=== PATIENT | male | born 1960 | race Caucasian/White ===

== ENCOUNTER 2017-03-19 12:46 | Observation (INO) | payer BC ==
--- NOTE | 2017-03-19 13:25 | ED ---
Shortness of Breath - HPI Summary HPI Summary: Patient presents to the ED with CC of SOB x 30 minutes which was resolved spontaneously prior to arrival to the ED. He states he was sitting at the time , and immediately after receiving not great news he began to experience the SOB and feeling he could not take a deep breath. Diaphoretic at the time, but is now appearing well. Mild chest pain 1/10 during SOB episode, but none currently. He states he feels OK now. He did not take aspirin at the time. He denies neurological deficits, confusion or GUARDADO. Nn personal history of cardiac problems, SOB, obstructive apnea or other contributory health complaints. Denies recent illness, sick contacts. Denies cough. He takes vitamins daily, but denies prescription medications. He is obese, but states he has been otherwise healthy. He has never had anything like this before. Denies travel, leg pain. Recent surgery to his upper back, but this was an outpatient procedure. He was not given abx or blood thinners. Family history includes paternal grandfather of [place] in 50's. Father [place] in late 60's. Non- smoker, marijuana use rare, ETOH rare. is at bedside. EKG shows changes. - History of Current Complaint Chief Complaint: EDShortnessOfBreath Time Seen by Provider: 03/19/17 13:07 Hx Obtained From: Patient Onset/Duration: Sudden Onset Timing: Intermittent Episodes Lasting: - 30minutes/ since resolved Current Severity: None Dyspnea At: Rest Related History: Obesity - Risk Factors Pulmonary Embolism: Recent Surgery Cardiac: Negative Pseudomonas: Negative Tuberculosis: Negative - Allergy/Home Medications Allergies/Adverse Reactions: Allergies Allergy/AdvReac Type Severity Reaction Status Date / Time Penicillins Allergy Hives Verified 03/19/17 14:49 Home Medications: Home Medications NK [No Home Medications Reported] 03/19/17 [History Confirmed 03/19/17] PMH/Surg Hx/FS Hx/Imm Hx Previously Healthy: Yes - Immunization History Hx Pertussis Vaccination: No Immunizations Up to Date: Unable to Obtain/Confirm Infectious Disease History: No Infectious Disease History: Denies: Traveled Outside the [place] in Last 30 Days - Social History Occupation: Employed Full-time Lives: With Family Alcohol Use: None Hx Substance Use: Yes Substance Use Type: Reports: Marijuana Hx Tobacco Use: No Smoking Status (MU): Never Smoked Tobacco Review of Systems Constitutional: Negative Eyes: Negative Cardiovascular: Negative Positive: Shortness Of Breath Genitourinary: Negative Positive: see HPI Positive: Other - small s/p surgery scar to upper midline back All Other Systems Reviewed And Are Negative: Yes Physical Exam - Summary Physical Exam Summary: Obese man in NAD sitting upright comfortably on the stretcher. Triage Information Reviewed: Yes Vital Signs On Initial Exam: Initial Vitals Temp Pulse Resp BP Pulse Ox 96.9 F 79 20 197/43 94 03/19/17 12:49 03/19/17 12:49 03/19/17 12:49 03/19/17 12:49 03/19/17 12:49 Vital Signs Reviewed: Yes Appearance: Positive: Well-Appearing, Well-Nourished Skin: Positive: Warm, Skin Color Reflects Adequate Perfusion Head/Face: Positive: Normal Head/Face Inspection Eyes: Positive: EOMI, EMMANUEL, Conjunctiva Clear Neck: Positive: Supple, No Lymphadenopathy Respiratory/Lung Sounds: Positive: Clear to Auscultation, Breath Sounds Present Cardiovascular: Positive: Normal, RRR Musculoskeletal: Positive: Normal, Strength/ROM Intact Neurological: Positive: Sensory/Motor Intact, Alert, Oriented to Person Place, Time, Speech Normal Psychiatric: Positive: Normal - Jhonny Coma Scale Coma Scale Total: 15 Diagnostics - Vital Signs Vital Signs Temp Pulse Resp BP Pulse Ox 03/19/17 13:10 97.8 F 81 18 178/41 95 03/19/17 12:49 96.9 F 79 20 197/43 94 - Laboratory Result Diagrams: 03/19/17 13:30 03/19/17 13:30 Lab Statement: Any lab studies that have been ordered have been reviewed, and results considered in the medical decision making process. Course/Dx - Course Course Of Treatment: Patient given aspirin 324mg and Metoprolol 25mg. EKG shows changes with T wave inversions in V4-V-6. Called Dr. Odom to make aware at 4:10pm who advised heparin over Lovenox. Hospitalist called and will admit to their service. Chest x-ray to body habitus, but show nothing acutely. Admitted at 4:15pm. Dr. Jane to see patient as well. - Diagnoses Differential Diagnosis/HQI/PQRI: Positive: Chest Wall Pain, [place], Unstable Angina Provider Diagnoses: SOB (shortness of breath) Discharge - Discharge Plan Condition: Stable Disposition: ADMITTED TO [facility]
--- NOTE | 2017-03-19 13:55 | RAD ---
Indication: Shortness of breath. Cough. EKG changes. Anxiety. Comparison: February 06, [address] Technique: Upright AP 1320 hours Report: Superimposed soft tissues with large body habitus limits image quality. No compelling pulmonary consolidation, focal pulmonary lesion, pleural effusion, pneumothorax. Mild cardiomegaly. Unremarkable central pulmonary vasculature. Mildly tortuous descending thoracic aorta potentiated by mild scoliosis similar to the race board attendant image from the February 06, 2011 CT abdomen exam. IMPRESSION: Limited exam due to large body habitus without compelling evidence for acute pulmonary or cardiac process.
[2017-03-19 13:59] LABS: Hematocrit 51 % (42-52); Hemoglobin 17.1 g/dl (14.0-18.0); Mean Corpuscular HGB Conc 34 g/dl (31-36); Mean Corpuscular Hemoglobin 31 pg (27-31); Mean Corpuscular Volume 92 fL (80-94); Mean Platelet Volume 9 um3 (7.4-10.4); Red Blood Count 5.52 10^6/ul (4.0-5.4); Red Cell Distribution Width 14 % (10.5-15); White Blood Count 7.3 10^3/ul (3.5-10.8)
[2017-03-19 14:00] LABS: Urine Bilirubin Negative (Negative); Urine Glucose Negative (Negative); Urine Nitrite Negative (Negative)
[2017-03-19 14:11] LABS: Albumin 4.3 g/dL (3.2-5.2); BUN/Creatinine Ratio 23.5 (8-20); Calcium 10.6 mg/dL (8.6-10.3); EGFR African American 119.1 (>60); EGFR Non-African American 92.6 (>60); Globulin 3.1 g/dL (2-4); Total Bilirubin 0.5 mg/dL (0.2-1.0); Total Protein 7.4 g/dL (6.4-8.9)
[2017-03-19 14:15] LABS: Potassium 4.5 mmol/L (3.5-5.0)
[2017-03-19 14:16] LABS: Troponin I 0.14 ng/mL (<0.04)
[2017-03-19] MEDS ORDERED: Metoprolol Tartrate TAB* 25 MG PO ONE (14:35)
[2017-03-19] MEDS ORDERED: Ondansetron INJ* 2 MG/ML VIAL IV PRN (14:44)
[2017-03-19] MEDS ORDERED: Aspirin Low Dose CHEW TAB* 81 MG PO ONE (14:44)
[2017-03-19] MEDS ORDERED: Docusate CAP* 100 MG PO PRN (14:44)
[2017-03-19] MEDS ORDERED: Iohexol 350* (CONTRAST) 500 ML MDV IV ONE (14:48)
[2017-03-19 15:44] LABS: Magnesium 2.2 mg/dL (1.9-2.7)
[2017-03-19] MEDS ORDERED: Atorvastatin* 80 MG TAB PO ONE (16:51)
[2017-03-19] MEDS ORDERED: Heparin DRIP 25,000 UNITS(*) 25,000 UNITS/500 ML BAG IVPB SCH (17:00)
[2017-03-19] MEDS ORDERED: Heparin VIAL(*) 5000 UNITS/ML VIAL (FIVE THOUSAND) IV SCH (17:00)
--- NOTE | 2017-03-19 18:03 | RAD ---
INDICATION: Shortness of breath. Anxiety. Assess for aortic dissection. COMPARISON: March 19, 2017 chest radiograph. TECHNIQUE: Multidetector CT images were obtained from the lung apices to the upper abdomen with 100 mL Omnipaque 350 IV contrast. Thoracic aorta angiogram protocol. Multiplanar reformation including with maximum intensity projection. REPORT: Mild geographic somewhat linear/planar pulmonary opacities are most suspicious for subsegmental atelectasis. Negative for pleural effusion or pneumothorax. Cardiomegaly with evidence for LEFT ventricular hypertrophy. Aneurysm of the thoracic aorta measuring up to 5.3 cm diameter at the sinotubular junction, 6.5 cm diameter at the ascending segment at the level of the main pulmonary artery, 3.4 cm at the proximal arch, 4.6 cm at the distal arch, and 3.5 cm at the distal descending segment. No dissection flap evident. Negative for mediastinal hematoma. Negative for significant atherosclerotic plaque of the thoracic aorta. Unremarkable aortic arch branch vessel origins. Negative for pericardial effusion. Unremarkable main pulmonary arteries. Opacification of the pulmonary arteries is insufficient for assessment for pulmonary embolism. Negative for thoracic lymphadenopathy. Limited images through the upper abdomen extending up to 3.5 cm below the origin of the renal arteries are without evidence for aneurysm of the visualized abdominal aorta or other suspicious abnormality. No suspicious focal osseous lesions evident. IMPRESSION: 1. Aneurysm of the thoracic aorta measuring up to 6.5 cm diameter at the descending segment at the level of the main pulmonary artery and extending from the sinotubular junction through the distal arch. No CT angiogram evidence for aortic dissection or aneurysm leak. 2. Cardiomegaly with suggestion of LEFT ventricular hypertrophy. 3. Mild bilateral subsegmental atelectasis. Results discussed with Dr. Aguilar 03/19/2017 5:58 PM EDT
--- NOTE | 2017-03-19 22:06 | DS ---
CC: Dr. Diaz * ADMISSION/TRANSFER/DISCHARGE NOTE: DATE OF ADMISSION: 03/19/17 DATE OF DISCHARGE: 03/19/17 PRIMARY CARE PROVIDER: Dr. Diaz. HEALTHCARE PROXY: His . CODE STATUS: Full. SOURCE OF INFORMATION: History obtained from interview with the patient and his . RELIABILITY: Fair. CHIEF COMPLAINT: Shortness of breath. HISTORY OF PRESENT ILLNESS: This is a 56-year-old man with no known past medical history, but in his usual state of health at home. His had gone out to visit his mother and when she returned he was startled. He developed difficulty taking deep breath that felt as if he was taking shallow breath. He did not feel like he was hyperventilating because he did not feel dizzy. During this period of time, he developed cough with generation of mucus. The shortness of breath lasted for approximately 30 to 45 minutes and his chest felt "weird." He denied any palpitations. Took his pulse to be 80 at home. He noted that the shortness of breath improved with relaxation. No associated nausea or vomiting. He has no recent sick contacts. No travel. His weight has been stable for the last 2 to 3 years. Most activity he gets is competitive [employer] tournaments where he throws approximately 300 horseshoes, and walks back and forth between the posts for approximately 3 to 4 hours. His last competition was in November. He notes that recently he went to 4 funerals in the last 2 months with 2 friends dying from MIs in the last 10 days, which have caused some notable anxiety. REVIEW OF SYSTEMS: As per HPI. Otherwise, all other systems negative. PAST MEDICAL HISTORY: Osteoarthritis of the left knee, status post several left knee surgeries. SOCIAL HISTORY: Occasional marijuana, 3 to 4 cigars per year, 3 drinks per day. 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 FAMILY HISTORY: Paternal grandfather with [place] in his 50s. Father from an [place] during surgery in his 60s, also had cancer of the bladder. ALLERGIES: PENICILLIN, was told he had hives as a kid. MEDICATION: Naproxen 200 mg daily. PHYSICAL EXAMINATION: Vitals: 176/35, heart rate 70, respiratory rate 16, and 95% on room air, T-max in the hospital 98 degrees Fahrenheit. Sitting up in bed , interactive, pleasant, in no apparent distress, obese. His oropharynx is clear. He has moist mucous membranes. Sclerae anicteric. He has not had elevated JVD. No cervical or supraclavicular lymphadenopathy. He has 2/6 systolic blowing ejection murmur at right upper sternal border as well as he had a 3/6 blowing diastolic murmur in the right upper sternal border. His lungs are clear to auscultation. His abdomen is obese, soft, nontender, nondistended. Positive bowel sounds. Extremities: Warm, well perfused, without clubbing, cyanosis or edema. He is alert and oriented x3. His cranial nerves II through XII are intact. LABORATORY DATA: Reviewed. Troponin I is 0.14, increasing to 0.16 two and a half hours later. BNP 316. Hemoglobin A1c 5.3. BUN 20, creatinine 0.85. D- dimer less than 200. Hemoglobin 17.1, hematocrit 51, platelets 158, white blood cell count 7.3. DATA REVIEWED: CTA chest and thorax performed to rule out aortic dissection. Cardiomegaly with evidence of left ventricular hypertrophy. Aneurysm of thoracic aorta measuring 5.3 cm diameter at the sinotubular junction, 6.5 cm diameter at the ascending segment at the level of the main pulmonary artery, 3.4 cm at the proximal arch, 4.6 cm at the distal arch, 3.5 cm at the distal ascending segment. No dissection flap evident. Negative for mediastinal hematoma. EKG on admission: Normal sinus rhythm; ventricular rate 72; normal limit axis and intervals; ST depressions V4 through V6, lead I, new from 2010; Q waves II, III, and aVF, old since 2010. ASSESSMENT AND PLAN: This is a 56-year-old man with no known past medical history, presenting to the hospital with 30 to 40 minutes of shortness of breath , resolved with relaxation, found with aortic insufficiency, with a wide pulse pressure of unknown chronicity in the setting of large ascending aortic aneurysm. There is concern of the patient's elevated troponin in the setting of acute coronary syndrome, although also possibility of the man in the setting of new aortic insufficiency or low output in the setting of aortic insufficiency. Dr. Odom consulted in this patient and came to the hospital and performed transthoracic echocardiogram at bedside, indicating severe aortic insufficiency , although that exam was limited by enlarged aortic aneurysm. Discussed the case and if the patient does have advancing type 1 [id number] myocardial infarction, we will be unable to accommodate for him left heart cath here due to aortic aneurysm. Additionally, the patient does follow with Dr. Diaz and has never been told that he has any murmur. In the setting of symptomatology and elevated troponin, it is felt that this is likely acute aortic insufficiency. While dissection is high on the differential for etiology of new acute aortic insufficiency, none was indicated on his CTA. However, this does not rule out a developing dissection. Even in the absence of a dissection , he would still need CT surgery for the magnitude of his aortic aneurysm. For these reasons, we discussed care with the patient and his and arranged transfer to [facility] with the accepting physician, Dr. Dunham. The case was discussed by Dr. Odom with Dr. Dunham at [facility]. The patient and his are in agreement. TIME SPENT: Greater than 75 minutes was spent in admission and transfer of this patient, greater than half was [id number] with the patient. [id number]/[facility] #: [id number] [facility] MED[facility] CENTERDaphne
[2017-03-19 23:20] VITALS: BP 189/41
--- NOTE | 2017-03-20 05:26 | CONS ---
CC: Dr. Diaz; Dr. Dunham at [facility]; Dr. Odom. * CARDIOLOGY CONSULTATION: DATE OF CONSULT: 03/19/17 REASON FOR EVALUATION: Dyspnea, abnormal troponin. HISTORY OF PRESENT ILLNESS: This is a pleasant 56-year-old gentleman who has a history of left knee problems, limiting his ability to ambulate as well as obesity. He denies any hypertension, murmurs, or previous cardiac history. He was in his usual state of health today until he noticed a sudden onset of shortness of breath and diaphoresis. He said he felt like he could not take a deep breath. He said it persisted for about 20 minutes despite trying to meditate and get control of his breathing and because of those symptoms, his decided to take him to the emergency room. By the time he got to the emergency room, he was feeling better, but he was noted to have an elevated troponin of 0.14 and an abnormal EKG with lateral ST-T wave changes. He was admitted and subsequently found to have an AI murmur. He adamantly denied that he has had murmur in the past and he last saw Dr. Diaz about a year ago. Because of those findings, a CT scan was ordered, which revealed aneurysm of the thoracic aorta measuring up to 6.5 cm at the descending segment at the level of the main pulmonary artery and extending from the sinotubular junction through the distal arch. No evidence for dissection or aneurysm leak. There was cardiomegaly with suggestion of LVH, mild bilateral subsegmental atelectasis. There was no pericardial effusion. Because of those show up that I performed a bedside echo, which was suboptimal, but did reveal what appeared to be severe AI as well as mild MR, overall preserved LV function with relative hypokinesis of the inferior posterior wall. The patient currently is pain free. He denies any syncope. No palpitations, orthopnea. He does have some chronic edema of his lower extremities and chronic venous stasis changes. He denies fevers, chills, sweats, or sharp chest pain. His symptoms occurred about 11:30 this morning. He denies tobacco use, diabetes, hyperlipidemia, hypertension. He does admit to obesity. PAST SURGICAL HISTORY: He said he had a surgery on his left knee in 1975 and arthroscopic surgery x2 and stated that he has severe impairment of the knee and is anticipating possible knee surgery, though he is trying to lose weight first. He denies other surgeries. FAMILY HISTORY: He has a sister that is adopted. Mother is alive and well at 88. Father after attempted valve surgery and had a history of coronary disease and bladder cancer. Paternal grandfather in his 50s. ALLERGIES: Include PENICILLIN. MEDICATIONS: As an outpatient, he was just on Naprosyn 200 mg daily for his knee pain. SOCIAL HISTORY: He drinks 2 to 3 alcoholic beverages a day. He denies tobacco use. He drinks 2 cups of caffeine a day. 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 He is , has no children. He is accompanied by his . REVIEW OF SYSTEMS: He states he sweats easily with exertion and states he sweats easily when playing horseshoes, which he does occasionally, but does not exercise otherwise. PHYSICAL EXAMINATION: He is a well-developed, obese gentleman, appearing somewhat anxious, but no apparent distress. The patient is 6 feet 2 inches and weighs 290 pounds. Blood pressure 176/35, pulse of 70, O2 sat 96%, temperature 98. Atraumatic, normocephalic. Extraocular muscles intact. Sclerae anicteric. No significant JVD. Carotids somewhat bounding. No cervical adenopathy or thyromegaly. Cardiac Exam: S1 and S2 with a 3/6 systolic ejection murmur at the left sternal border as well as a 2/4 diastolic murmur heard at the left lower sternal border at the apex. Chest was clear. No CVAT. Abdomen obese. Exam limited by obesity. Bowel sounds present, nontender. No hepatospleno- megaly. Femoral pulses intact without bruits. Distal pulses on the left were diminished. Posterior tibialis was palpable. I could not feel dorsalis pedis. On the right, there was 1+. Both feet were cool and he said that is usual for him. DIAGNOSTIC STUDIES/LAB DATA: His labs include fairly unremarkable CBC with hematocrit 51. Sodium 137, potassium 4.5, BUN of 20, creatinine of 0.85. Myoglobin is 56, CK-MB of 7.6. Elevated troponin of 0.14 and repeated at 15:54 was 0.16. BNP elevated at 316. Potassium 4.5, BUN 20, creatinine of 0.85. Chest x-ray revealed mild cardiomegaly, mildly tortuous descending thoracic aorta, potentiated by mild scoliosis. Limited exam due to large body habitus. EKG revealed sinus rhythm with LVH and lateral ST-T changes. Consider ischemia versus LVH repolarization abnormalities, these are new compared to 2011. He also has left atrial enlargement. IMPRESSION: My impression is that Mr. Hoffman presents with symptoms of onset of dyspnea/diaphoresis of unclear etiology and a newly recognized aortic insufficiency murmur with electrocardiographic changes and mild elevation of troponin to 0.14. Although he is currently asymptomatic with a wide pulse pressure, I am concerned that this aortic insufficiency may be acute given his history of no previous murmur and the wide pulse pressure, now he states that previously his blood pressure was 120/80. Also, the elevation of troponin and the inferior posterior wall motion abnormalities and possibility of acute coronary syndrome are compromise of the coronary perfusion either due to dissection or the wide pulse pressure. I discussed these findings with him, his , and with Dr. Aguilar. Given the potential need for cardiac catheterization with a dilated aortic aneurysm as well as the potential need for cardiothoracic surgery, I did recommend transfer to tertiary care center for further evaluation and treatment. The patient understands and agrees and requests a transfer to [facility]. I did have a conversation with Dr. Yan Dunham, who did accept the patient in transfer. For the time being, we will avoid anticoagulation at this point in time until he has further evaluation of his aorta. I am reluctant to decrease his pulse pressure or blood pressure further at this point in time, given the potential ischemia with his wide pulse pressure. He will continue to be monitored. I did recommend long-term weight reduction. Given the large ascending aneurysm, most likely he will be a candidate for surgical repair and possibly aortic valve replacement or repair. Further recommendations depend on his clinical course. [id number]/[facility] #: [id number] MARIANO
--- NOTE | 2017-03-20 05:34 | CARD ---
CC: Dr. Diaz; Dr. Dunham * DATE OF PROCEDURE: 03/19/17 - ROOM #431 PROCEDURE: Bedside echo. PATIENT OF: Dr. Diaz and Dr. Dunham at [facility]. INDICATION: A 56-year-old gentleman presented with shortness of breath, elevated troponin, abnormal EKG, newly recognized murmur with AI. A bedside echo was requested. The patient is morbidly obese and has a dilated ascending aortic aneurysm. Imaging was suboptimal. In brief, it revealed a well preserved LV function with EF of 55% to 60%, there was mild relative hypokinesis at the inferior posterior wall. The aortic valve was suboptimally visualized, but there appeared at least moderate and perhaps severe AI. The mitral valve was visualized and there appeared to be mild MR. The ascending aorta was dilated. RV systolic function appeared to be normal. There was no pericardial effusion. IMPRESSION: Suboptimal study, which revealed overall preserved left ventricular function with possible inferior posterior wall motion abnormality. There also appeared to be moderate to severe if not severe aortic insufficiency. There is mild mitral regurgitation and a dilated ascending aorta but not well seen, cannot exclude dissection on the basis of the study. [id number]/[facility] #: [id number] [facility]
[2017-03-20] MEDS ORDERED: Aspirin EC Low Dose* 81 MG TAB.EC PO SCH (09:00)
--- NOTE | 2017-03-21 07:54 | PN ---
Carolina Rodgers SooYoung, scribed for Guero Jane MD on 03/19/17 at 1451 . Progress Note - Progress Note Date of Service: 03/19/17 Note: 1444: evaluated MELITON Pasquale's patient. Pt is a 56 y/o M presenting to ED with c/o SOB, shallow-breathing, productive cough onset approx 1100. He states "just not feeling right" earlier. He states feeling fairly normal now, sx have improved since being in ED. Denies pedal edema or calf tenderness. Known R ankle swelling from a trip and fall previously. 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 FHx: cardiac risk factors, [place] in both father and grandfather. Pt is not treated for high BP. Daily beer drinker. Non-smoker. PCP is Dr. Diaz, last seen over a year ago. Pt has been under recent stress. Repeat EKG ordered in room. 1449: EKG shows no STEMI, unchanged from previous EKG performed today. The documentation as recorded by the Carolina lazo SooYoung accurately reflects the service I personally performed and the decisions made by me, Guero Jane MD.
== END 2017-03-19 20:45 | disposition short-term general hospital (02) ==
LOC: ED 12:46 → MEDTELE 14:44
PROVIDERS: ADMIT Internal Medicine; ATTEND Internal Medicine
DX: I35.1 Nonrheumatic aortic (valve) insufficiency (principal); I71.2 Thoracic aortic aneurysm, without rupture; R74.8 Abnormal levels of other serum enzymes; R06.02 Shortness of breath; I51.7 Cardiomegaly; F17.299 Nicotine dependence, other tobacco product, with unspecified nicotine-induced disorders; Z79.899 Other long term (current) drug therapy; J98.11 Atelectasis
CPT/HCPCS: 36415; 71010; 71275; 80053; 81003; 82550; 82553; 83036; 83605; 83735; 83874; 83880; 84484; 85025; 85379; 85610; 85730; 93005; A9270-GY; Q9967

== ENCOUNTER 2018-03-28 13:55 | Emergency (ER) | payer BC ==
[2018-03-28 14:34] VITALS: BP 152/89
--- NOTE | 2018-03-28 14:59 | UC ---
Upper Extremity HPI - HPI Summary HPI Summary: The patient is a 57 y/o M presenting to [facility] c/o falling backwards on to his right wrist at approximately 12:45 today. When he landed from the fall, his wrist was behind him. His distal wrist is now swollen, and the throbbing pain is rated 6/10 in severity. The pain is aggravated by movement and alleviated by rest. There is not any associated pain or in the elbow or shoulder, and he has FROM in his hand. He additionally denies bruising and numbness/tingling. He took two Ibuprofen to treat the pain [employer] with some relief. No hx of HTN or diabetes. FHx of cardiac disease. Drinks alcohol daily and uses marijuana but not tobacco. - History of Current Complaint Chief Complaint: UCUpperExtremity Stated Complaint: WRIST INJURY Time Seen by Provider: 03/28/18 14:44 Hx Obtained From: Patient Onset/Duration: Sudden Onset, Lasting Hours, Still Present Severity Initially: Moderate Severity Currently: Moderate Pain Intensity: 6 Pain Scale Used: 0-10 Numeric Location Of Pain: Is Discrete @ - right wrist Character: Throbbing Aggravating Factor(s): Movement Alleviating Factor(s): OTC Meds - 2x Ibuprofen, Rest Associated Signs And Symptoms: Positive: Swelling - in wrist, Other - POSITIVE: FROM in hand; NEGATIVE: pain in elbow or shoulder. Negative: Bruising, Numbness /Tingling Body - Head: 1 - swelling/pain in distal aspect of right wrist - Allergies/Home Medications Allergies/Adverse Reactions: Allergies Allergy/AdvReac Type Severity Reaction Status Date / Time Penicillins Allergy Hives Verified 03/28/18 14:35 Home Medications: Home Medications Acetaminophen [Acetaminophen Extra Strength] 1,000 mg PO Q4H PRN 03/28/18 [ History Confirmed 03/28/18] Aspirin 325 mg PO DAILY 03/28/18 [History Confirmed 03/28/18] Lisinopril [Lisinopril 2.5 MG-] 2.5 mg PO DAILY 03/28/18 [History Confirmed ] Metoprolol Tartrate TAB* [Lopressor TAB*] 50 mg PO BEDTIME 03/28/18 [History Confirmed 03/28/18] Metoprolol Tartrate TAB* [Lopressor TAB*] 100 mg PO DAILY 03/28/18 [History Confirmed 03/28/18] PMH/Surg Hx/FS Hx/Imm Hx Other Endocrine History: NEGATIVE: diabetes Other Cardiovascular History: NEGATIVE: HTN - Surgical History Surgical History: Yes Surgery Procedure, Year, and Place: Left knee surgery. - Family History Known Family History: Positive: Cardiac Disease - Social History Alcohol Use: Daily Substance Use Type: Marijuana Smoking Status (MU): Never Smoked Tobacco Review of Systems Skin: Bruising, Other - NEGATIVE: bruising Musculoskeletal: Other: - POSITIVE: swelling in right wrist, able to move fingers with FROM; NEGATIVE: pain in elbow, shoulder Neurological: Other - NEGATIVE: numbness/tingling All Other Systems Reviewed And Are Negative: Yes Physical Exam - Summary Physical Exam Summary: General: well-appearing, no pain distress Skin: warm, color reflects adequate perfusion, dry Head: normal Eyes: EOMI, EMMANUEL ENT: normal Neck: supple, nontender Respiratory: CTA, breath sounds present Cardiovascular: RRR Abdomen: soft, nontender Bowel: present Musculoskeletal: strength/ROM intact, Swelling in the right distal wrist on radial aspect Neurological: sensory/motor intact, A&O x3 Psychological: affect/mood appropriate Triage Information Reviewed: Yes Vital Signs: Initial Vital Signs Temp 97.4 F 03/28/18 14:30 Pulse 65 03/28/18 14:30 Resp 18 03/28/18 14:30 BP 152/89 03/28/18 14:30 Pulse Ox 100 03/28/18 14:30 Vital Signs Reviewed: Yes Procedures - Splinting Right Upper Extremity Location: right distal wrist Splint: sugar-tong Pre-Proc Neuro Vasc Exam: normal Post-Proc Neuro Vasc Exam: normal - in tact after placement Diagnostics - Radiology Right Wrist XR Xray Interpretation: Positive (See Comments) - Distal radial fracture as described. [facility] physician has reviewed this report. Radiology Interpretation Completed By: Radiologist Upper Extremity Course/Dx - Course Course Of Treatment: Medications reviewed. Allergies noted. BP noted and advised to follow up with PCP. RT WRIST/FOREARM SUGAR TONG SPLINT PLACED BY MYSELF. NEUROVASCULAR INTACT AFTER SPLINTING. F/U ORTHOPEDICS. - Differential Dx/Diagnosis Provider Diagnoses: RIGHT DISTAL RADIUS FRACTURE. Elevated BP without dx of HTN , Discharge - Sign-Out/Discharge Documenting (check all that apply): Patient Departure - Patient will be discharged home. - Discharge Plan Condition: Good Disposition: HOME Patient Education Materials: Wrist Fracture in Adults (ED) Referrals: [facility] [Provider Group] [facility] [Outside] Evert Diaz MD [Primary Care Provider] - Additional Instructions: FOLLOW UP WITH YOUR ORTHOPEDIST. GET RECHECKED FOR ANY WORSENING OF YOUR CONDITION OR QUESTIONS OR CONCERNS. Your blood pressure was elevated during todays visit; please follow up with your primary care provider within a week for further evaluation. - Billing Disposition and Condition Condition: GOOD Disposition: Home Attestation Statement Scribe Attestation: This is clifton Draper documenting for attending Dr. Romero Blankenship MD. User Type: Provider with Scribe Provider Attestation: The documentation recorded by the scribe accurately reflects the service I personally performed and the decisions made by me.
--- NOTE | 2018-03-28 15:11 | RAD ---
INDICATION: Right wrist injury COMPARISON: None TECHNIQUE: AP, lateral, and oblique views were obtained. FINDINGS: There is an essentially nondisplaced intra-articular fracture of the distal radius. No other fractures are evident. The joint spaces are otherwise maintained. There is mild diffuse soft tissue swelling. IMPRESSION: DISTAL RADIAL FRACTURE DESCRIBED.
== END 2018-03-28 15:30 | disposition home or self-care (01) ==
LOC: UCEAST 13:55
DX: S52.571A Other intraarticular fracture of lower end of right radius, initial encounter for closed fracture (principal); W19.XXXA Unspecified fall, initial encounter; Y93.9 Activity, unspecified; Y92.9 Unspecified place or not applicable; R03.0 Elevated blood-pressure reading, without diagnosis of hypertension; Z88.0 Allergy status to penicillin; Z82.49 Family history of ischemic heart disease and other diseases of the circulatory system
CPT/HCPCS: 25605; 99212; G0463